=== PATIENT | female | born 1970 | race Caucasian/White ===

== ENCOUNTER → 2023-12-20 08:59 | Outpatient (REF) | payer OTHER, SELFPAY | LOC: WDC 08:59 | PROVIDERS: ATTENDING PHYSICIAN Obstetrics & Gynecology; FAMILY PHYSICIAN Family Medicine | DX: Z12.31 Encounter for screening mammogram for malignant neoplasm of breast (principal) | CPT/HCPCS: 77063; 77067 ==

== ENCOUNTER → 2025-02-22 18:22 | Outpatient (REF) | payer OTHER, SELFPAY | LOC: WDC 18:22 | PROVIDERS: ATTENDING PHYSICIAN Obstetrics & Gynecology; FAMILY PHYSICIAN Family Medicine | DX: Z12.31 Encounter for screening mammogram for malignant neoplasm of breast (principal) | CPT/HCPCS: 77063; 77067 ==

== ENCOUNTER 2025-03-31 06:22 | Day surgery (SDC) | payer OTHER, SELFPAY ==
[2025-03-31] VITALS (13 sets, daily range): BP systolic 112–121; BP diastolic 68–84; BMI 24.0
[2025-03-31] MEDS: NORMOSOL-R/PLASMALYTE-A 1000 IV (10:36)
[2025-03-31] MEDS: DILAUDID 0.5 MG IV ×3 (12:35→13:10)
[2025-03-31] MEDS: ZOFRAN 4 MG IV (15:07)
== END 2025-03-31 15:50 | disposition home or self-care (01) ==
LOC: SDS 06:22
PROVIDERS: ATTENDING PHYSICIAN Otolaryngology; FAMILY PHYSICIAN Family Medicine
DX: J32.4 Chronic pansinusitis (principal); J33.9 Nasal polyp, unspecified
CPT/HCPCS: 31254; 31267; 31276; 88311